=== PATIENT | female | born 1960 | race Caucasian/White ===

== ENCOUNTER 2016-08-19 09:40 | Outpatient (CLI) | payer OTHER ==
[2015-12-26 11:25] VITALS: BMI 43.9
== END 2016-08-19 09:41 | disposition home or self-care (01) ==
LOC: CAR 09:40
PROVIDERS: ATTEND Nurse Practitioner Family
DX: R07.9 Chest pain, unspecified (principal)
CPT/HCPCS: 93005; 93010

== ENCOUNTER 2016-08-27 06:38 | Outpatient (CLI) | payer OTHER ==
[2015-12-26 11:25] VITALS: BMI 43.9
--- NOTE | 2016-08-27 13:08 | ECHOSTRESS ---
Date of Exam: 08/27/16 Ordering Physician: JANNETH HICKMAN Reason for Echo: ABNORMAL EKG, STRESS TEST--NO ISCHEMIA M-Mode Normal Adult Results LV Dimensions Normal Adult Results AoV Opening excursions >1.6 LVEDD-base- 3.5-5.8 Ao root dimensions 2.0-3.7 LVESD-base- 3.1-4.6 L. Atrium dimensions 1.9-3.8 Post. Wall thickness 0.8-1.1 IV septum (thickness) 0.7-1.2 Post. Wall excursion 0.72-1.3 Septal motion Systolic motion R. Ventricular cavity 1.5-2.0 LVEF 60% Paradoxical septal wall motion 2-D: NORMAL LEFT VENTRICULAR CONTRACTILITY--RESTING AND POST EXERCISE M-MODE: MV: AV: TV: PV: CHAMBER SIZE: WALL MOTION: NORMAL LEFT VENTRICULAR CONTRACTILITY--RESTING AND POST EXERCISE PERICARDIUM: INTERPRETATION: 1. NORMAL LEFT VENTRICULAR CONTRACTILITY--RESTING AND POST EXERCISE MTDD
--- NOTE | 2016-08-27 13:19 | STRESSECHO ---
Date of Test: 08/27/16 Reason for Exam: ABNORMAL EKG Ordering Physician: [facility]--JANNETH ACOSTA Current Medications: PROZAC, WELLBUTRIN, LATUDA, NORCO, ZANAFLEX, AUGMENTIN, LOVASTATIN, ADDERALL Target Heart Rate: 141/166 HT: 62" WT: 245 LBS STAGE MPH/GRADE HEART RATE PER MINUTE BLOOD PRESSURE MMHG RHYTHM S-T SEGMENT +/- UP DOWN SYMPTOMS,COMMENTS At Rest 80 114/62 SR X NONE 1 1.7/10% 120 128/70 SR X NONE 2 2.5/12% 3 3.4/14% 4 4.2/16% 5 5.0/18% Immediately after 143 SR X SHORT OF BREATH Durations of Exercise: 4:41 Maximum Heart Rate Reached: 143 Reason for Termination: SHORT OF BREATH 4 MIN POST EXERCISE--HR/MINUTE 96, BP/MMHG 132/60 INTERPRETATION: 96% OXYGEN SATURATION WITH EXERCISE ON ROOM AIR 1. NO EVIDENCE OF ISCHEMIA FROM ST-T WAVE 2. NO CHEST PAIN OR DISCOMFORT 3. NO ARRHYTHMIAS 4. BLOOD PRESSURE RESPONSE NORMAL NORMAL LEFT VENTRICULAR CONTRACTILITY--RESTING AND POST EXERCISE MTDD
== END 2016-08-27 06:39 | disposition home or self-care (01) ==
LOC: CAR 06:38
PROVIDERS: ATTEND Nurse Practitioner Family
DX: R94.31 Abnormal electrocardiogram [ECG] [EKG] (principal)

== ENCOUNTER 2016-09-03 08:54 | Outpatient (CLI) ==
[2015-12-26 11:25] VITALS: BMI 43.9
== END 2016-09-03 08:55 | disposition home or self-care (01) ==
LOC: CAR 08:54
PROVIDERS: ATTEND Nurse Practitioner Family
DX: R06.02 Shortness of breath (principal)

== ENCOUNTER 2016-10-23 15:52 | Outpatient (CLI) ==
[2015-12-26 11:25] VITALS: BMI 43.9
== END 2016-10-23 15:53 | disposition home or self-care (01) ==
LOC: CAR 15:52
PROVIDERS: ATTEND Nurse Practitioner Family
DX: R06.83 Snoring (principal); R40.0 Somnolence; R53.83 Other fatigue
CPT/HCPCS: 95810

== ENCOUNTER 2017-03-31 09:50 | Outpatient (CLI) ==
[2015-12-26 11:25] VITALS: BMI 43.9
[2017-03-31 10:14] LABS: BASOPHILS # (AUTO) 0.1 K/uL (0-0.2); BASOPHILS % (AUTO) 0.9 % (0.0-3.0); EOSINOPHILS # (AUTO) 0.4 K/ul (0.0-0.7); HEMATOCRIT 53.1 % (37.0-47.0); HEMOGLOBIN 18.4 g/dl (12.0-16.0); IMMATURE GRANULOCYTE % (AUTO) 0.6 % (0.0-5.0); LYMPHOCYTES # (AUTO) 2.7 K/uL (0.60-3.4); LYMPHOCYTES % (AUTO) 31.7 (10.0-50.0); MEAN CORPUSCULAR HEMOGLOBIN 28.9 pg (27.0-31.0); MEAN CORPUSCULAR HGB CONC 34.7 (31.8-35.4); MEAN CORPUSCULAR VOLUME 83.5 fl (81.0-99.0); MONOCYTES # (AUTO) 0.9 K/uL (0.4-2.0); MONOCYTES % (AUTO) 9.8 (0-10); NEUTROPHILS # (AUTO) 4.6 K/ul (2.0-6.9); PLATELET COUNT 327 10^3/uL (140-440); RED BLOOD COUNT 6.36 10^6/ul (4.20-5.40); WHITE BLOOD COUNT 8.65 K/ul (4.6-10.2)
[2017-03-31 10:41] LABS: ALBUMIN 3.7 g/dL (3.4-5.0); ALBUMIN/GLOBULIN RATIO 1.06; ANION GAP 14.3; BILIRUBIN,TOTAL 0.66 mg/dL (0.00-1.20); BUN/CREATININE RATIO 11.36; CALCIUM 9.4 mg/dL (8.2-10.2); CHOL/HDL RATIO 6.2 (4.5-5.5); CREATININE 0.88 mg/dL (0.60-1.30); POTASSIUM 4.3 mmol/L (3.5-5.10); TOTAL PROTEIN 7.2 g/dL (6.4-8.2)
== END 2017-03-31 09:51 | disposition home or self-care (01) ==
LOC: LAB 09:50
PROVIDERS: ATTEND Nurse Practitioner Family
DX: F32.9 Major depressive disorder, single episode, unspecified (principal); E78.5 Hyperlipidemia, unspecified
CPT/HCPCS: 36415; 80053; 80061; 84443; 85025

== ENCOUNTER 2017-07-14 09:12 | Outpatient (CLI) ==
[2015-12-26 11:25] VITALS: BMI 43.9
[2017-07-14 10:00] LABS: BASOPHILS # (AUTO) 0.1 K/uL (0-0.2); BASOPHILS % (AUTO) 0.9 % (0.0-3.0); EOSINOPHILS # (AUTO) 0.3 K/ul (0.0-0.7); EOSINOPHILS % (AUTO) 4.1 % (0.0-7.0); HEMATOCRIT 50.5 % (37.0-47.0); HEMOGLOBIN 17.6 g/dl (12.0-16.0); IMMATURE GRANULOCYTE % (AUTO) 0.5 % (0.0-5.0); LYMPHOCYTES # (AUTO) 2.3 K/uL (0.60-3.4); LYMPHOCYTES % (AUTO) 28.3 (10.0-50.0); MEAN CORPUSCULAR HEMOGLOBIN 29.1 pg (27.0-31.0); MEAN CORPUSCULAR HGB CONC 34.9 (31.8-35.4); MEAN CORPUSCULAR VOLUME 83.6 fl (81.0-99.0); MONOCYTES # (AUTO) 0.8 K/uL (0.4-2.0); MONOCYTES % (AUTO) 9.3 (0-10); NEUTROPHILS # (AUTO) 4.6 K/ul (2.0-6.9); NEUTROPHILS % (AUTO) 56.9; PLATELET COUNT 318 10^3/uL (140-440); RED BLOOD COUNT 6.04 10^6/ul (4.20-5.40); WHITE BLOOD COUNT 8.07 K/ul (4.6-10.2)
[2017-07-14 10:08] LABS: ALBUMIN 3.3 g/dL (3.4-5.0); ALBUMIN/GLOBULIN RATIO 0.92; BILIRUBIN,TOTAL 0.67 mg/dL (0.00-1.20); BUN/CREATININE RATIO 10.12; CALCIUM 9.2 mg/dL (8.2-10.2); CHOL/HDL RATIO 5.1 (4.5-5.5); CREATININE 0.79 mg/dL (0.60-1.30); TOTAL PROTEIN 6.9 g/dL (6.4-8.2)
== END 2017-07-14 09:13 | disposition home or self-care (01) ==
LOC: LAB 09:12
PROVIDERS: ATTEND Nurse Practitioner Family
DX: R71.8 Other abnormality of red blood cells (principal); E78.5 Hyperlipidemia, unspecified
CPT/HCPCS: 36415; 80053; 80061; 85025

== ENCOUNTER 2017-07-16 12:46 | Outpatient (CLI) ==
[2015-12-26 11:25] VITALS: BMI 43.9
== END 2017-07-16 12:47 | disposition home or self-care (01) ==
LOC: CAR 12:46
PROVIDERS: ATTEND Nurse Practitioner Family
DX: R06.02 Shortness of breath (principal); Z72.0 Tobacco use

== ENCOUNTER 2017-07-17 13:29 | Outpatient (CLI) ==
[2015-12-26 11:25] VITALS: BMI 43.9
--- NOTE | 2017-07-20 11:35 | MAMMO ---
EXAM: Bilateral digital screening mammogram (2-D and 3-D) History: Screening Comparison: Bilateral mammogram 12/25/2015 Findings: MLO and CC views of bilateral breasts demonstrate scattered fibroglandular breast parenchy ma. CAD was reviewed by the radiologist. Tomosynthesis was performed. There are no dominant masses , no suspicious microcalcifications and no architectural distortions Impression: Stable negative mammogram. Recommend followup routine screening mammography in 1 year. BIRADS 1
== END 2017-07-17 13:30 | disposition home or self-care (01) ==
LOC: RAD 13:29
PROVIDERS: ATTEND Nurse Practitioner Family
DX: Z12.31 Encounter for screening mammogram for malignant neoplasm of breast (principal)
CPT/HCPCS: 77067

== ENCOUNTER 2017-07-27 12:57 | Outpatient (CLI) ==
[2015-12-26 11:25] VITALS: BMI 43.9
--- NOTE | 2017-07-27 14:45 | MRI ---
EXAM: MRI of the right knee without contrast COMPARISON: None available. HISTORY: Right knee pain. TECHNIQUE: Multiplanar noncontrast MR images of the right knee were acquired using a 1.2 Alisia magne t. Several sequences are moderately limited by patient motion artifact and the coronal T2W with fat s aturation sequence was repeated. FINDINGS: No recent radiographs of the right knee are available for comparison and radiographic irene elation is recommended. There is intrasubstance degeneration along the medial meniscus. There is a radial tear involving the free edge of the medial meniscal body extending to the peripheral third of the meniscus which extend s through the anterior horn/body junction. Diminished size irregularity of the adjacent meniscal rem nant suggesting a degenerative component with extrusion of the body related to loss of hoop containme nt. The lateral meniscus is intact. Intact anterior and posterior cruciate ligament fibers are identified. Sprain with scarring of the m edial collateral ligament proximally. The lateral collateral ligament complex and posterolateral cor ner ligaments are intact. Mild distal quadriceps tendinosis. Patellar tendon is intact. No abnorma l subluxation of the patella. Subcutaneous edema anteriorly without a drainable fluid collection or focal soft tissue ulcer. Moderate thinning and fissuring of the cartilage of the patella most severe along the junction of the medial facet and median ridge. Full-thickness cartilage defects on both sides of the joint medial c ompartment most pronounced along the medial tibial plateau with subchondral edema/cystic change/scler osis. Question small focus of subchondral/insufficiency fracture involving the medial tibial plateau . Small marginal osteophytes in all three compartments of the knee. Small joint effusion which is n onspecific. No popliteal cyst or osteochondral body. IMPRESSION: 1. 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 2. Small joint effusion. 3. Medial meniscal tear as described. Extrusion of the body related to loss of hoop containment. 4. Sprain with scarring of the medial collateral ligament. 5. Distal quadriceps tendinosis.
== END 2017-07-27 12:58 | disposition home or self-care (01) ==
LOC: RAD 12:57
PROVIDERS: ATTEND Nurse Practitioner Family
DX: M25.561 Pain in right knee (principal); G89.29 Other chronic pain

== ENCOUNTER 2017-07-28 12:52 | Outpatient (CLI) ==
[2015-12-26 11:25] VITALS: BMI 43.9
--- NOTE | 2017-07-28 14:22 | MRI ---
EXAM: MRI left knee without contrast COMPARISON: MRI of the left knee 11/01/2014. HISTORY: Left knee pain. No known injury. TECHNIQUE: Multiplanar noncontrast MR images of the left knee were acquired using a 1.2 Alisia magnet . FINDINGS: There is linear hypointense signal involving Hoffa's fat pad which may represent linear ar throfibrosis related to previous arthroscopic surgery in the appropriate clinical setting. Diminishe d size of the medial meniscus with blunting of the free edge of the body as noted on the previous joanna dy related to degenerative type tear and/or sequela partial meniscectomy as previously described. A r adial component extends peripherally at the level of the body through the body/posterior horn junctio n. Intermediate signal throughout the substance of the meniscal remnant. The posterior horn/root wi th hyperintense signal abutting the inferior articular surface and free edge related to postoperative scarring versus small tear. There is intrasubstance degeneration of the lateral meniscus of the anterior horn/root. Intact anterior and posterior cruciate ligament fibers are identified. Scarring related to a chronic sprain/partial tear of the medial collateral ligament. The lateral collateral ligament complex and posterolateral corner ligaments are intact. Mild distal quadriceps and minimal patellar tendinosis w ithout abnormal subluxation of the patella. Marginal osteophytes in all three compartments of the knee. Marked thinning of the cartilage of both sides of the joint in the medial compartment with subchondral edema/cystic change/sclerosis. Mild t hinning of the cartilage in the patellofemoral compartment. No evidence of an acute fracture or oste omyelitis. Small joint effusion. No popliteal cyst or osteochondral body. IMPRESSION: 1. Tricompartmental osteoarthrosis with most severe changes of the medial compartment. 2. Question postoperative scarring of Hoffa's fat pad. Diminished size of the medial meniscus relat ed to degenerative type tear and/or sequela of partial meniscectomy as noted on the previous study wi th a radial component extending peripherally at that level. Question scarring versus small tear of t he remnant at the posterior horn as described. Correlate with physical examination. 3. Chronic sprain/partial tear of the medial collateral ligament. 4. Patellar/quadriceps tendinosis. 5. Intrasubstance degeneration of the lateral meniscus. 6. Small joint effusion.
== END 2017-07-28 12:53 | disposition home or self-care (01) ==
LOC: RAD 12:52
PROVIDERS: ATTEND Nurse Practitioner Family
DX: M25.562 Pain in left knee (principal); G89.29 Other chronic pain

== ENCOUNTER 2018-04-08 12:28 | Outpatient (CLI) ==
[2015-12-26 11:25] VITALS: BMI 43.9
== END 2018-04-08 12:29 | disposition home or self-care (01) ==
LOC: RHC-LAB 12:28
PROVIDERS: ATTEND Nurse Practitioner Family
DX: M25.561 Pain in right knee (principal); M25.562 Pain in left knee; G89.29 Other chronic pain; E78.5 Hyperlipidemia, unspecified
CPT/HCPCS: 36415; 80053; 80061; 85025

== ENCOUNTER 2018-04-13 16:36 | Outpatient (CLI) ==
[2015-12-26 11:25] VITALS: BMI 43.9
--- NOTE | 2018-04-14 08:21 | DI ---
EXAM: Two views of the chest. History: Short of breath Comparison: Chest radiograph 09/17/2015 Findings: Heart size is normal. No focal consolidation. No appreciable pleural fluid and no pneumo thorax. No acute osseous abnormalities. Impression: No acute cardiopulmonary process.
== END 2018-04-13 16:37 | disposition home or self-care (01) ==
LOC: RAD 16:36
PROVIDERS: ATTEND Nurse Practitioner Family
DX: R06.02 Shortness of breath (principal)

== ENCOUNTER 2018-10-01 11:20 | Outpatient (CLI) ==
[2015-12-26 11:25] VITALS: BMI 43.9
== END 2018-10-01 11:21 | disposition home or self-care (01) ==
LOC: LAB 11:20
PROVIDERS: ATTEND Nurse Practitioner Family
DX: E78.5 Hyperlipidemia, unspecified (principal); E66.9 Obesity, unspecified; F32.9 Major depressive disorder, single episode, unspecified
CPT/HCPCS: 36415; 80053; 80061; 84443; 85025

== ENCOUNTER 2019-01-19 09:46 | Outpatient (CLI) ==
[2015-12-26 11:25] VITALS: BMI 43.9
--- NOTE | 2019-01-19 11:58 | DI ---
EXAM: Three views of the cervical spine. History: Cervical neck pain. Findings: No acute fracture or subluxation of the cervical spine. No prevertebral soft tissue swell ing. Mild multilevel disc space narrowing with endplate sclerosis and a few prominent anterior osteo phytes, especially at C5-6. Impression: 1. No acute osseous abnormality of the cervical spine. 2. Mild degenerative disc disease
--- NOTE | 2019-01-19 12:00 | DI ---
EXAM: Three views of the lumbar spine. History: Lower back pain. Findings: No acute fracture of the lumbar spine. Cholecystectomy clips. Suspected bilateral L5 pars defects. 1 cm anterolisthesis of L5 on S1. 2 mm retrolisthesis of L2 on L3 and L1 on L2. Severe d isc space narrowing at L5-S1 with endplate sclerosis and osteophyte formation. Severe facet hypertro phy at L5-S1. Mild to moderate disc space narrowing at L1-L2 and L2-L3. Mild disc space narrowing s een elsewhere. Surgical clip within the pelvis. Impression: 1. No acute osseous abnormality. 2. Suspected bilateral L5 pars defects. 3. Grade 1 anterolisthesis of L5 on S1. 4. Severe degenerative changes at L5-S1
--- NOTE | 2019-01-20 02:45 | MRI ---
MRI of the cervical spine. HISTORY: Degenerative disc disease. COMPARISON: 01/09/2018. TECHNIQUE: Multiplanar, multisequence MRI protocol including sagittal T1-weighted, sagittal T2-weigh becki, sagittal inversion recovery, coronal T2-weighted, axial T1-weighted and axial T2-weighted sequen swapna. FINDINGS: Vertebral alignment demonstrates straightening of normal lordosis and a minimal leftward c urvature similar to that seen on the patient's earlier examination. Vertebral body height is well ma intained. Marrow signal is again noted to be heterogeneous due to areas of fatty infiltration. The intervertebral discs are stable in appearance with mild narrowing noted at C5-6. The remaining inter vertebral discs are normal in height. There is evidence of modest desiccation. There is modest flat tening of the cervical cord at C5-6 associated with disc/osteophyte intrusion consistent with prior e xam. The spinal cord is normal in caliber and signal. The caliber of the spinal canal appears borde rline small. The cervicomedullary junction demonstrates no evidence of tonsillar herniation. The pr evertebral and paraspinous soft tissues appear to be within normal limits. Note is again made of pre viously described fatty infiltration of the parotid glands. No apical masses are identified in the l charmaine mullen. Segmental analysis: C2-3: There is a modest disc bulge with a small right paramedian protrusion impressing the ventral th ecal sac at this level. The AP diameter of the canal is about 9.8 mm. The spinal cord is not signif icantly displaced or deformed. The nerve root axilla are not significantly narrowed. The neural for marie are not stenosed. C3-4: There is a small posterior disc bulge at this level. The AP diameter of the canal is about 9.3 mm. The spinal cord is not significantly displaced or deformed. The nerve root axilla are not sign ificantly narrowed. There is mild to moderate left and moderate right foraminal stenosis due to face t and uncovertebral joint hypertrophy.. C4-5: There is a modest posterior disc bulge at this level. The AP diameter of the canal is about 9 mm. The spinal cord is not significantly displaced or deformed. The nerve root axilla are not signi ficantly narrowed. There is mild right and minor left foraminal stenosis due to facet and uncoverteb ral joint hypertrophy. C5-6: There is a broad-based disc bulge with a midline/left paracentral protrusion impressing the pietro tral thecal sac at this level. The AP diameter in the midline is about 8.6 mm. The protrusion inden ts the left ventral fredrick cord. There is narrowing of the nerve root axilla region on the left. Ther e is mild left foraminal stenosis due to facet and uncovertebral joint hypertrophy.. C6-7: There is a modest broad based disc bulge at this level. The AP diameter in the midline is abou t 9 mm. The spinal cord is not significantly displaced or deformed. The nerve root axilla are not s ignificantly narrowed. The neural foramina are not stenosed. C7-T1: There is no significant disc bulge at this level. The spinal canal appears normal in caliber and contour. The spinal cord is not significantly displaced or deformed. The nerve root axilla are not significantly narrowed. The neural foramina are not stenosed. IMPRESSION: 1. The current examination demonstrates generally stable findings when compared to the patient's carlin or examination. There is straightening of normal lordosis and a minimal leftward curvature. The sophia tebral bodies are normal in height and show mildly heterogeneous signal. The discs show evidence turner iccation with mild narrowing at C5-6. 2. There is mild central canal stenosis at C2-3, C3-4, C4-5, C5-6 and C6-7, details provided in the report at the individual levels. There is a left paracentral protrusion at C5-6 [address] the co rd. 3. There is mild to moderate left and moderate right foraminal stenosis at C3-4, mild right and mode rate left foraminal stenosis at C4-5 and mild left foraminal stenosis at C5-6, details provided in th e report at the individual levels. 4. Additional details are contained in the report.
== END 2019-01-19 09:47 | disposition home or self-care (01) ==
LOC: RAD 09:46
PROVIDERS: ATTEND Pain Medicine Interventional Pain Medicine
DX: M48.062 Spinal stenosis, lumbar region with neurogenic claudication (principal); M48.07 Spinal stenosis, lumbosacral region; M51.36 Other intervertebral disc degeneration, lumbar region; M51.37 Other intervertebral disc degeneration, lumbosacral region; M43.16 Spondylolisthesis, lumbar region; M47.816 Spondylosis without myelopathy or radiculopathy, lumbar region; M47.817 Spondylosis without myelopathy or radiculopathy, lumbosacral region; M50.123 Cervical disc disorder at C6-C7 level with radiculopathy; M50.323 Other cervical disc degeneration at C6-C7 level; M48.02 Spinal stenosis, cervical region; M48.03 Spinal stenosis, cervicothoracic region; M47.812 Spondylosis without myelopathy or radiculopathy, cervical region

== ENCOUNTER 2019-01-20 10:03 | Outpatient (CLI) ==
[2015-12-26 11:25] VITALS: BMI 43.9
--- NOTE | 2019-01-23 11:29 | MRI ---
MRI of the lumbar spine HISTORY: Low back pain. Right leg pain and weakness. COMPARISON: 06/20/2016. CT 09/07/2014. PROCEDURE: Multiplanar, multisequence MRI protocol including sagittal T1-weighted, sagittal T2-weigh becki, sagittal inversion recovery, coronal T2-weighted, axial T1-weighted and axial T2-weighted sequen swapna. FINDINGS: Consistent with the nomenclature of the prior examination, there are six non-rib bearing jakob mbar vertebrae. Vertebral alignment demonstrates a previously described 2 mm anterior subluxation of L3 with respect to L2, 2.2 mm anterior listhesis of L4 relative to L3, 2.9 mm anterior subluxation o f L5 relative to L4 and 10 mm anterolisthesis of L6 relative to S1. There are bilateral L6 pars inte rarticularis defects described previously. Vertebral body height is well maintained. Marrow signal is within normal limits for age. The intervertebral discs demonstrate moderate disc space narrowing and desiccation at L6-S1. There is modest previously noted disc desiccation without disc space narro wing L2-3, L3-4 and L5-6. The conus medullaris appears normal in position and configuration and sign al. The caliber of the spinal canal is intrinsically within normal limits. The prevertebral and par aspinous soft tissues are generally stable in appearance. There is a large previously observed proba ble cyst arising from the lower pole of the left kidney. This has been previously evaluated on a CT 09/07/2014. Segmental analysis: T12-L1: There is no significant disc bulge at this level. The spinal canal is not significantly narr owed. The subarticular spaces and lateral recesses are not significantly narrowed. The neural carlos ольга are not stenosed. Note is again made of a previously described left foraminal perineural cyst. The conus crosses this level. L1-L2: There is no significant disc bulge at this level. The spinal canal is not significantly narro wed. The subarticular spaces and lateral recesses are not significantly narrowed. The neural forami na are not stenosed. The conus terminates at about this level. L2-L3: There is a small concentric pseudodisc bulge impressing the ventral thecal sac at this level consistent with the prior examination. The subarticular spaces and lateral recesses are not signific antly narrowed. There is mild right and moderate left foraminal stenosis due to facet arthropathy an d disc intrusion. L3-L4: That there is a small concentric pseudodisc bulge impressing the ventral thecal sac at this le manuela, consistent with the prior examination. The spinal canal is not significantly narrowed. The sub articular spaces and lateral recesses are not significantly narrowed. There is moderate right and mo derate to severe left foraminal stenosis due to facet arthropathy and disc intrusion. The exiting L3 nerve roots contact the disc bulge in the foramina as observed previously. L4-L5: There is a small concentric pseudodisc bulge impressing the ventral thecal sac at this level, consistent with the prior examination. The AP diameter of the thecal sac is reduced to 9.5 mm by a c ombination of disc, facet arthropathy, thickening ligamenta flava and dorsal epidural lipomatosis. T he subarticular spaces and lateral recesses are not significantly narrowed. There is moderate bilate ral foraminal stenosis due to facet arthropathy and disc intrusion. Each L4 nerve root contacts the disc bulge near the lateral aspect of the foramen as observed previously. L5-L6: There is a small concentric pseudodisc bulge impressing the ventral thecal sac at this level c onsistent with the prior examination. The AP diameter of the thecal sac is reduced to about 9 mm by a combination of disc, facet arthropathy, thickening ligamenta flava and dorsal epidural lipomatosis. There is narrowing of the subarticular spaces. There is marked right and severe left foraminal hai nosis due to facet arthropathy and disc/osteophyte intrusion. Each L5 nerve root contacts the disc b ulge and foramen as observed previously. L6 S1: There is a prominent pseudodisc bulge impressing the ventral thecal sac at this level. There is mild central canal stenosis due to a combination of disc, facet arthropathy, thickening ligamenta flava and dorsal epidural lipomatosis. There is marked right and severe left foraminal stenosis due to a combination of anterolisthesis, loss of disc height, facet arthropathy and disc intrusion. Each L6 nerve root appears compressed in its respective foramen as observed previously. IMPRESSION: 1. The current examination demonstrates evidence of six non-rib bearing lumbar vertebrae and multile manuela degenerative disc disease with multilevel listheses listed in the body of the report, the largest at L6-S1 associated with bilateral pars defects. 2. There is previously described mild central canal stenosis at L3-4, L4-5, L5-6 and L6-1. 3. There is evidence of multilevel foraminal stenoses including mild right and moderate left stenosi s at L2-3, moderate right and moderate to severe left stenosis at L3-4, moderate bilateral stenosis a t L4-5, marked right and severe left stenosis at L5-6 and marked right and severe left stenosis at L6 -S1, details provided in the report at the individual levels.
== END 2019-01-20 10:04 | disposition home or self-care (01) ==
LOC: RAD 10:03
PROVIDERS: ATTEND Pain Medicine Interventional Pain Medicine
DX: M48.062 Spinal stenosis, lumbar region with neurogenic claudication (principal); M48.07 Spinal stenosis, lumbosacral region; M51.36 Other intervertebral disc degeneration, lumbar region; M51.37 Other intervertebral disc degeneration, lumbosacral region; M43.16 Spondylolisthesis, lumbar region; M47.816 Spondylosis without myelopathy or radiculopathy, lumbar region; M47.817 Spondylosis without myelopathy or radiculopathy, lumbosacral region; M50.123 Cervical disc disorder at C6-C7 level with radiculopathy; M50.323 Other cervical disc degeneration at C6-C7 level; M48.02 Spinal stenosis, cervical region; M48.03 Spinal stenosis, cervicothoracic region; M47.812 Spondylosis without myelopathy or radiculopathy, cervical region